=== PATIENT | female | born 1960 | race African-American/Black ===

== ENCOUNTER 2016-10-15 10:14 | Day surgery (SDC) | payer OTHER, MEDICARE ==
[~2016-10-15] VITALS: Ht 158.8 cm; Wt 96.8 kg
[~2016-10-15 10:14] MED LIST: AMBIEN 10MG10 MG PO; ATIVAN 1MG T1 MG/TAB PO; BUTRANS10 MCG/HR TD; CIPRO 500MG TA500 MG PO; DESONIDE CREAM TP; FLEXERIL10 MG PO; FLONASE NASAL S16 GM NS; HCTZ 25MG25 MG PO; IRON1 POW PO; LEVOTHROID0.125 MG PO; LEVSIN0.125 M1 PO; LIORESAL 1010 MG/TAB PO; LOPERAMIDE HCL2 MG PO; LUNESTA3 MG PO; MINOCYCLIN100 MG/CAP PO; MULTIPLE VITAMI1 CAP PO; NEXIUM 40MG40 MG PO; NEXIUM40 MG PO; NIFEREX-150 FOR1 CA1 PO; PATANOL 5 ML5 ML OP; PLENDIL 5MG TAB5 MG PO; PLENDIL5 MG PO; PRISTIQ50 M1 PO; RANITIDINE HYD150 MG PO; RYZOLT100 MG PO; SAVELLA50 MG PO; SYNTHROID0.175 MG PO; TENORMIN 2525 MG/TAB PO; TENORMIN50 MG PO; TRAMADOL50 MG PO; TYLENOL PM EXTR1 TA1 PO; VITAMIN D32000 I1 PO; ZOCOR 10MG10 MG PO; ZYRTEC 10MG PO; ZYRTEC10 M1 PO; [UNRECOGNIZED DRUG - CODE] MM
[2016-10-15] MEDS ORDERED: FOLIC ACID 11 MG/TA1 PO (10:40)
[2016-10-15] MEDS ORDERED: PRISTIQ 50 MG T50 MG PO (10:41)
[2016-10-15] MEDS ORDERED: SYNTHROID0.088 MG/T PO (10:41)
[2016-10-15] MEDS ORDERED: HCTZ12.5TAB PO (10:42)
[2016-10-15] MEDS ORDERED: TENORMIN 5050 MG/TAB PO (10:43)
[2016-10-15] MEDS ORDERED: NORVASC2.5 MG PO (10:43)
[2016-10-15] MEDS ORDERED: ASPIRIN E.C. 8181 MG PO (10:44)
[2016-10-15] MEDS ORDERED: ALLEGRA 180MG180 MG PO (10:45)
[2016-10-15] MEDS ORDERED: ZYRTEC 10MG10 MG PO (10:45)
[2016-10-15] MEDS ORDERED: ZYLOPRIM 300MG300 MG PO (10:46)
[2016-10-15] MEDS ORDERED: SINGULAIR 110 MG/TAB PO (10:46)
[2016-10-15] MEDS ORDERED: ZANTAC 150150 MG PO (10:47)
[2016-10-15] MEDS ORDERED: BUSPAR10 MG PO (10:47)
[2016-10-15] MEDS ORDERED: IMODIUM A-D2 MG PO (10:49)
[2016-10-15] MEDS ORDERED: LEVSIN0.125 M1 PO (10:50)
[2016-10-15] MEDS ORDERED: PROTONIX 40MG T40 MG PO (10:51)
[2016-10-15] MEDS ORDERED: SAVELLA25 MG PO (10:52)
[2016-10-15] MEDS ORDERED: PATANOL OPHTHALM5 ML OU (10:53)
[2016-10-15] MEDS ORDERED: ZOFRAN 4MG T4 MG/TAB PO (10:53)
[2016-10-15 10:54] VITALS: BP 119/71; PULSE 71; TEMP 97.6
[2016-10-15] MEDS ORDERED: FLONASEALLERGY NS (10:54)
[2016-10-15] MEDS ORDERED: SEROQUEL50 MG PO (10:56)
[2016-10-15] MEDS ORDERED: MELATONIN5 M1 SL (10:57)
[2016-10-15] MEDS ORDERED: VITAMIND3 5000 PO (10:58)
[2016-10-15] MEDS ORDERED: FERREX 150 FORT1 CA1 PO (10:59)
[2016-10-15] MEDS ORDERED: LIORESAL 1010 MG/TAB PO (11:00)
[2016-10-15] MEDS ORDERED: VESICARE 5MG5 MG PO (11:01)
[2016-10-15] MEDS ORDERED: ULTRAM 50MG TAB50 MG PO (11:01)
[2016-10-15] MEDS ORDERED: TYLENOL PM EXTR1 TA1 PO (11:02)
[2016-10-15] MEDS ORDERED: REFRESH PLUS 00.4 M1 OP (11:03)
[2016-10-15] MEDS ORDERED: LIDODERM 5% PATC1 EA TP (11:04)
[2016-10-15] MEDS ORDERED: MYCOSTATIN100000 U/G TP (11:04)
[2016-10-15] MEDS ORDERED: VOLTAREN GEL 1%1 TU TP (11:05)
[2016-10-15] MEDS ORDERED: BENGAY COLD THERAP5% TOP (11:05)
[2016-10-15] MEDS ORDERED: SALINE 45 ML45 ML NS (11:06)
[2016-10-15] MEDS ORDERED: NIZORAL SHAMPO120 M1 TP (11:07)
[2016-10-15] MEDS ORDERED: VITAMIN B11000 MCG/M IM (11:07)
[2016-10-15] MEDS ORDERED: LOMOTIL 0.025 M1 TAB PO (11:08)
[2016-10-15 11:45] VITALS: BP 105/75; PULSE 75; TEMP 98.3
[2016-10-15 12:00] VITALS: BP 113/66; PULSE 74
[2016-10-15 12:15] VITALS: BP 114/65; PULSE 74
[2016-10-15 12:30] VITALS: BP 107/58; PULSE 76
== END 2016-10-15 12:45 ==
LOC: SDCO 10:14
DX: Z98.84 Bariatric surgery status (principal); K44.9 Diaphragmatic hernia without obstruction or gangrene; R13.14 Dysphagia, pharyngoesophageal phase; I10 Essential (primary) hypertension; J45.909 Unspecified asthma, uncomplicated; K21.9 Gastro-esophageal reflux disease without esophagitis; G47.33 Obstructive sleep apnea (adult) (pediatric); M79.7 Fibromyalgia; K58.9 Irritable bowel syndrome, unspecified; M19.90 Unspecified osteoarthritis, unspecified site; G89.29 Other chronic pain; M54.9 Dorsalgia, unspecified; Z90.49 Acquired absence of other specified parts of digestive tract
CPT/HCPCS: OP; J2704; J7030

== ENCOUNTER → 2016-11-21 | Outpatient (CLI) | payer MEDICARE, OTHER ==
[~2016-11-21] MED LIST changes: +ALLEGRA 180MG180 MG PO; +ASPIRIN E.C. 8181 MG PO; +BENGAY COLD THERAP5% TOP; +BUSPAR10 MG PO; +FERREX 150 FORT1 CA1 PO; +FLONASEALLERGY NS; +FOLIC ACID 11 MG/TA1 PO; +HCTZ12.5TAB PO; +IMODIUM A-D2 MG PO; +LIDODERM 5% PATC1 EA TP; +LOMOTIL 0.025 M1 TAB PO; +MELATONIN5 M1 SL; +MYCOSTATIN100000 U/G TP; +NIZORAL SHAMPO120 M1 TP; +NORVASC2.5 MG PO; +PATANOL OPHTHALM5 ML OU; +PRISTIQ 50 MG T50 MG PO; +PROTONIX 40MG T40 MG PO; +REFRESH PLUS 00.4 M1 OP; +SALINE 45 ML45 ML NS; +SAVELLA25 MG PO; +SEROQUEL50 MG PO; +SINGULAIR 110 MG/TAB PO; +SYNTHROID0.088 MG/T PO; +TENORMIN 5050 MG/TAB PO; +ULTRAM 50MG TAB50 MG PO; +VESICARE 5MG5 MG PO; +VITAMIN B11000 MCG/M IM; +VITAMIND3 5000 PO; +VOLTAREN GEL 1%1 TU TP; +ZANTAC 150150 MG PO; +ZOFRAN 4MG T4 MG/TAB PO; +ZYLOPRIM 300MG300 MG PO; +ZYRTEC 10MG10 MG PO
== END ==
LOC: COL.RAD 11-13 14:30
DX: R13.14 Dysphagia, pharyngoesophageal phase (principal); K44.9 Diaphragmatic hernia without obstruction or gangrene; K21.9 Gastro-esophageal reflux disease without esophagitis; Z98.84 Bariatric surgery status

== ENCOUNTER 2017-05-15 12:30 | Outpatient (RCR) | payer OTHER, MEDICARE | END 2017-07-14 | disposition home or self-care (01) | LOC: WSST | DX: R49.0 Dysphonia (principal); J38.3 Other diseases of vocal cords | CPT/HCPCS: G9171-GN; G9172-GN ==

== ENCOUNTER 2018-10-09 11:11 | Day surgery (SDC) | payer OTHER, MEDICARE ==
[~2018-10-09] VITALS: Ht 157.5 cm; Wt 96.0 kg
[2018-10-09] MEDS ORDERED: ALLEGRA 180MG180 MG PO (12:07)
[2018-10-09] MEDS ORDERED: LIPITOR 40MG TA40 MG PO (12:12)
[2018-10-09] MEDS ORDERED: DOXYCYCLINE 50M50 MG PO (12:17)
[2018-10-09] MEDS ORDERED: FERREX 150150 MG PO (12:19)
[2018-10-09] MEDS ORDERED: ANUSOL-HC SUPPO25 MG RC (12:24)
[2018-10-09] MEDS ORDERED: LASIX 40MG TABL40 MG PO (12:25)
[2018-10-09] MEDS ORDERED: MAG-OX 400400 MG/TAB PO (12:29)
[2018-10-09] MEDS ORDERED: MYRBETR50MG PO (12:31)
[2018-10-09] MEDS ORDERED: NORVASC 5MG5 MG/TAB PO (12:32)
[2018-10-09] MEDS ORDERED: PRISTIQ 50 MG T50 MG PO (12:35)
[2018-10-09] MEDS ORDERED: PRISTIQ100 MG PO (12:38)
[2018-10-09] MEDS ORDERED: SAVELLA50 MG PO (12:40)
[2018-10-09 12:42] VITALS: BP 123/47; PULSE 110; TEMP 98
[2018-10-09] MEDS ORDERED: SYNTHROID0.1 MG/TAB PO (12:43)
[2018-10-09] MEDS ORDERED: RESTORIL 1515 MG/CAP PO (12:47)
[2018-10-09] MEDS ORDERED: PROTOPIC0.1% TP (12:48)
[2018-10-09] MEDS ORDERED: ZANTAC 150MG T150 MG PO (12:57)
[2018-10-09] MEDS ORDERED: ZYRTEC 10MG10 MG PO (13:00)
[2018-10-09] MEDS ORDERED: TEMOVATE45CR TOP (13:03)
[2018-10-09] MEDS ORDERED: HYDROCORTISO28.35 G1 TP (13:07)
--- NOTE | 2018-10-09 13:17 | NUR ---
Initial visit; Patient thanked Fingerer for offering prayer and spiritual care prior to her surgical procedure.
--- NOTE | 2018-10-09 13:28 | NUR ---
Pt admitted and is ready for surgery. Upon admission pt stated her last solid po intake was a "sweet hawiian roll and 1 circus peanut at 1145 this morning." Nurse clearified with pt as she had arrived to our unit at 1119. Pt then stated "No no it must have been 1045 then." When told that her surgery would be postponed due to the risk of aspiration pt then states "no, I must be confusing my times. It was all last night. I have not had anything this morning." Nurse stressed the importance of being NPO past midnight and pt states "I have not had anything past midnight." John GARDUNO notified and will speak with pt. Message left for . Pt reports her is her, but has not been back to the waiting room. Will continue to monitor. Call light within reach. Side rails up x2.
[2018-10-09 15:56] VITALS: BP 114/49; PULSE 112; TEMP 98.5
--- NOTE | 2018-10-09 15:56 | NUR ---
Patient arrives back to [facility] alert, denies pain or nausea. Patient monitor applied, vitals stable. Patient's spouse at bedside. Patient given water and crackers.
[2018-10-09 16:15] VITALS: BP 109/54; PULSE 106
[2018-10-09 16:30] VITALS: BP 112/50; PULSE 106
--- NOTE | 2018-10-09 16:30 | NUR ---
Patient tolerated water and crackers without any nausea. Patient reports incisions sites sore, but denies pain. Dressings clean/dry/intact. Vitals stable.
[2018-10-09 16:45] VITALS: BP 106/53; PULSE 106
[2018-10-09] MEDS ORDERED: ULTRAM 50MG TAB50 MG PO (16:45)
--- NOTE | 2018-10-09 16:55 | NUR ---
Dismissal instructions gone over with patient and patient's spouse. Both verbalize understanding and all questions answered.
== END 2018-10-09 17:10 | disposition home or self-care (01) ==
LOC: SDCO 11:11
DX: N39.41 Urge incontinence (principal); R35.0 Frequency of micturition; I10 Essential (primary) hypertension; D64.9 Anemia, unspecified; E11.9 Type 2 diabetes mellitus without complications; F41.9 Anxiety disorder, unspecified; F32.9 Major depressive disorder, single episode, unspecified; E03.9 Hypothyroidism, unspecified; E05.00 Thyrotoxicosis with diffuse goiter without thyrotoxic crisis or storm; J45.909 Unspecified asthma, uncomplicated; K21.9 Gastro-esophageal reflux disease without esophagitis; M10.9 Gout, unspecified; K58.0 Irritable bowel syndrome with diarrhea; G47.33 Obstructive sleep apnea (adult) (pediatric); G47.00 Insomnia, unspecified; E66.9 Obesity, unspecified; Z68.37 Body mass index [BMI] 37.0-37.9, adult; Z87.442 Personal history of urinary calculi; Z79.82 Long term (current) use of aspirin; Z79.899 Other long term (current) drug therapy
CPT/HCPCS: C1767; C1778; C1787; C1894; J0690; J2250; J2704; J3010; J7030

== ENCOUNTER 2020-08-08 07:17 | Day surgery (SDC) | payer OTHER, MEDICARE ==
[~2020-08-08] VITALS: Ht 158.8 cm; Wt 94.0 kg
[~2020-08-08 07:17] MED LIST changes: +ANUSOL-HC SUPPO25 MG RC; +DOXYCYCLINE 50M50 MG PO; +FERREX 150150 MG PO; +HYDROCORTISO28.35 G1 TP; +LASIX 40MG TABL40 MG PO; +LIPITOR 40MG TA40 MG PO; +MAG-OX 400400 MG/TAB PO; +MYRBETR50MG PO; +NORVASC 5MG5 MG/TAB PO; +PRISTIQ100 MG PO; +PROTOPIC0.1% TP; +RESTORIL 1515 MG/CAP PO; +SYNTHROID0.1 MG/TAB PO; +TEMOVATE45CR TOP; +ZANTAC 150MG T150 MG PO
[2020-08-08] MEDS ORDERED: PERIOSTAT PO (08:02)
[2020-08-08] MEDS ORDERED: PLAQUENIL 200M200 MG PO (08:09)
[2020-08-08 08:17] VITALS: BP 125/92; PULSE 96; TEMP 98.5
[2020-08-08] MEDS ORDERED: FERREX 150150 MG PO (08:33)
[2020-08-08] MEDS ORDERED: LEVSIN0.125 M1 PO (08:36)
[2020-08-08] MEDS ORDERED: SYNTHROID0.075 MG/T PO (08:37)
[2020-08-08] MEDS ORDERED: NYSTATIN100000 U/1 TOP (08:39)
[2020-08-08] MEDS ORDERED: TOVIAZ8 MG PO (08:40)
[2020-08-08] MEDS ORDERED: ULTRAM ER100 MG PO (08:42)
[2020-08-08] MEDS ORDERED: SAVELLA50 MG PO (08:43)
[2020-08-08] MEDS ORDERED: B-121000 MCG PO (08:44)
[2020-08-08] MEDS ORDERED: VITAMIND3 5000 PO (08:45)
[2020-08-08 09:10] VITALS: BP 102/86; PULSE 97; TEMP 98.2
--- NOTE | 2020-08-08 09:10 | NUR ---
PATIENT TRANSPORTED PER CART FROM GI SUITE TO BAY 1 ACCOMPANIED BY ALLA RN. PATIENT TALKING WITH STAFF. IV SITE IS BLOODY. PATIENT AMBULATED FROM CART TO CHAIR. WITH SLOW STEADY GAIT WITH 2 ASSIST. PATIENT DENIES DISCOMFORT AND NAUSESA. IV SITE ADDED TAPE AND CONNECTIONS SECURED. IN ROOM.
[2020-08-08 09:15] VITALS: BP 110/91; PULSE 91
--- NOTE | 2020-08-08 09:15 | NUR ---
VSS ON ROOM AIR. PATIENT GIVEN HOT TEA AND WARMED MUFFIN. CONTINUES TO DENY C/O'S.
[2020-08-08 09:30] VITALS: BP 110/59; PULSE 88
--- NOTE | 2020-08-08 09:30 | NUR ---
VSS ON ROOM AIR. PATIENT TALKING WITH . PATIENT TOLERATES MUFFIN AND HOT TEA WITHOUT PROBLEMS. PATIENT DENIES DISCOMFORT.
[2020-08-08 09:45] VITALS: BP 101/65; PULSE 96
[2020-08-08 10:00] VITALS: BP 104/78; PULSE 96
--- NOTE | 2020-08-08 10:00 | NUR ---
VSS ON ROOM AIR. PATIENT DENIES DISCOMFORT AND NAUSEA. DR BARRIOS IN ROOM TALKING WITH PATIENT AND .
--- NOTE | 2020-08-08 10:12 | NUR ---
VSS. IV SITE DC'D WITH CATHETER TIP INTACT. PRESSURE AND BANDAGE APPLIED. DISCHARGE INSTRUCTIONS GIVEN VERBAL AND DISCHARGE PACKET PROVIDED. QUESTIONS ANSWERED AND PATIENT VOICED UNDERSTSANDING. COPY OF SIGNED INSTRUCTIONS GIVEN. [address] CLOTHES[address] 1028 DISCHARGED PER WHEEL CHAIR ACCOMPANIED BY AMB RN TO [facility] PLATT.
== END 2020-08-08 10:28 | disposition home or self-care (01) ==
LOC: SDCO 07:17
DX: K64.0 First degree hemorrhoids (principal); K44.9 Diaphragmatic hernia without obstruction or gangrene; R15.9 Full incontinence of feces; K58.0 Irritable bowel syndrome with diarrhea; E11.42 Type 2 diabetes mellitus with diabetic polyneuropathy; D50.9 Iron deficiency anemia, unspecified; K21.9 Gastro-esophageal reflux disease without esophagitis; M19.90 Unspecified osteoarthritis, unspecified site; E07.9 Disorder of thyroid, unspecified; Z20.822 Contact with and (suspected) exposure to COVID-19; I10 Essential (primary) hypertension; J45.909 Unspecified asthma, uncomplicated; G89.29 Other chronic pain; F41.9 Anxiety disorder, unspecified; F32.9 Major depressive disorder, single episode, unspecified; E66.9 Obesity, unspecified; M79.7 Fibromyalgia; E78.5 Hyperlipidemia, unspecified; I73.00 Raynaud's syndrome without gangrene; L43.9 Lichen planus, unspecified; Z79.899 Other long term (current) drug therapy; Z98.84 Bariatric surgery status; Z79.890 Hormone replacement therapy; Z79.82 Long term (current) use of aspirin; Z79.891 Long term (current) use of opiate analgesic
CPT/HCPCS: J2704; J7030